=== PATIENT | female | born 2000 ===

== ENCOUNTER 2019-09-17 08:51 | Emergency (ER) | payer BC ==
--- NOTE | 2019-09-17 09:01 | ED Physician Documentation ---
General Adult - HISTORIAN Historian: patient, parent - HPI Stated Complaint: R ear pain Chief Complaint: General Adult Onset: days ago Timing: still present Severity: moderate Further Comments: yes (Pt is a 19 yo female with R ear pain x 3 days. Pt has had a mild sore throat and swollen lymph nodes.) - ROS CONST: other (malaise) EYES/ENT: sore throat, other (R ear pain) CVS/RESP: none GI/: none MS/SKIN/LYMPH: none - PAST HX Past History: other (depression) Allergies/Adverse Reactions: Allergies Allergy/AdvReac Type Severity Reaction Status Date / Time No Known Allergies Allergy Verified 09/17/19 09:08 Home Medications: Ambulatory Orders Medication Instructions Recorded Amoxicillin [Trimox] 500 mg PO TID #30 capsule 09/17/19 Baclofen 10 mg PO TID PRN 09/17/19 Doxepin HCl [Sinaquan] 10 mg PO HS 09/17/19 Venlafaxine HCl 75 mg PO DAILY 09/17/19 - SOCIAL HX Smoking History: cigarettes - FAMILY HX Family History: No - REVIEWED ASSESSMENTS Nursing Assessment Reviewed: Yes Vitals Reviewed: Yes Progress - Progress Progress: Rx Amoxicillin 500 mg. Take one by mouth every 8 hours for 10 days. General Adult Physical Exam - PHYSICAL EXAM GENERAL APPEARANCE: mild distress EENT: TM erythema (R) NECK: normal inspection, supple, lymphadenopathy RESPIRATORY: no resp distress, chest non-tender, breath sounds normal CVS: reg rate & rhythm, heart sounds normal ABDOMEN: soft, no organomegaly, normal bowel sounds BACK: normal inspection SKIN: warm/dry, normal color EXTREMITIES: non-tender, normal range of motion, no evidence of injury NEURO: oriented X3, motor nml, sensation nml Discharge Clincal Impression: Otitis media Qualifiers: Otitis media type: unspecified Chronicity: acute Qualified Code(s): H66.90 - Otitis media, unspecified, unspecified ear Prescriptions: Amoxicillin [Trimox] 500 mg PO TID #30 capsule Referrals: Primary Doctor,No [Primary Care Provider] - Condition: Stable Disposition: 01 HOME, SELF-CARE Decision to Admit: NO Decision Time: 09:11
[2019-09-17 09:04] VITALS: BP 132/93
== END 2019-09-17 09:18 | disposition home or self-care (01) ==
LOC: ED 08:51
DX: H66.91 Otitis media, unspecified, right ear (principal); F17.210 Nicotine dependence, cigarettes, uncomplicated
CPT/HCPCS: 99281; 99284